=== PATIENT | female | born 1975 | race Caucasian/White ===

== ENCOUNTER → 2017-11-06 | Outpatient (CLI) | payer OTHER ==
[~2017-11-06] MED LIST: ACCUNEB SO1.25 MG/1 INH; ACETAMINOPHEN-1 EAC1 PO; ALDACTONE25 MG PO; AMBIEN 5 MG TABL5 M1 PO; AMLODIPINE BESYL5 M1 PO; APRI PO; APRI1 EACH PO; ATROVENT HFA14 GM INH; AUGMENTIN 875875 MG PO; BUTALBITAL-APA1 EAC1 PO; CELEXA10 MG PO; CIPROFLOXACIN500 M1 PO; DIOVAN320 MG PO; DUONEB 2.5-0.5 M3 ML INH; EFFEXOR75 MG PO; FAMCICLOVIR500 MG PO; FAMCYCLOVIR 50500 M1 PO; FLEXERIL PO; FLONASE 0.05%50 MCG NASAL; FLORICAL CAPSU1 EACH PO; HYDROCODONE-AP1 EAC6 PO; HYDROCODONE-APA1 TA1 PO; HYOSCYAMINE0.125 MG PO; IBUPROFEN 800800 M1; IMITREX 25 MG T25 M1; KEPPRA 500 MG500 M1 PO; LIORESAL 10 MG10 MG PO; LORTAB 5-500 T1 EAC1 PO; MAXALT; MAXALT MLT ODT10 M1 PO; MAXALT5 MG PO; METOPROLOL SUCC25 M1 PO; NORCO 5-325 TA1 EAC1 PO; NORCO 5-325 TA1 EACH PO; OMEPRAZOLE40 MG PO; ONDANSETRON HCL4 M2 PO; ONDANSETRON ODT4 MG PO; PAROXETINE ER12.5 M1 PO; PAXIL CR37.5 MG PO; PREDNISONE 20 M20 M1 PO; PROAIR HFA8.5 GM INH; PROMETHAZINE V480 M1 GT; PROPRANOLOL 1010 M1; PULMICORT0.25 MG/3 INH; RELPAX40 MG PO; TOPAMAX50 MG PO; VITAMIN B-121000 MCG PO; VITAMIN D2000 UNIT PO; VOLTAREN GEL 1100 G2 TOP; WELLBUTRIN SR150 MG PO; XANAX XR1 MG PO; XANAX1 MG PO; XANAX2 MG PO; ZANTAC 150MG T150 MG PO; ZOLOFT50 MG PO; ZPAK PO; [UNRECOGNIZED DRUG - OTHER]
[2017-11-06 06:47] LABS: HEMOGLOBIN 12.9 gm/dL (12.0-15.0); MCH 30.7 pg (26.0-34.0); NUCLEATED RBCS 0 /100WBC; RBC 4.19 mil/uL (4.20-5.00); WBC 6.5 thou/uL (4.0-11.0)
[2017-11-06 06:48] LABS: ABSOLUTE EOSINOPHILS 0.1 thou/uL (0.0-0.7); ABSOLUTE LYMPHOCYTES 1.8 thou/uL (0.8-5.3); ABSOLUTE MONOCYTES 0.3 thou/uL (0.0-1.2); ABSOLUTE NEUTROPHILS 4.2 thou/uL (1.6-8.1); BASOPHILS 0.7 %; EOSINOPHILS 1.9 %; HEMATOCRIT 38.1 % (37.0-47.0); LYMPHOCYTES 27.4 %; MCHC 33.8 g/dL (28.0-37.0); MCV 90.9 fL (80.0-100.0); MONOCYTES 5.2 %; MPV 8.9 fl. (7.2-11.1); PLATELET COUNT* 212 thou/uL (150-400); POLYS 64.8 %; RDW-CV 14.6 % (10.5-14.5)
[2017-11-06 06:57] LABS: ALBUMIN 3.8 g/dL (3.4-5.0); ALKALINE PHOSPHATASE 88 U/L (46-116); ANION GAP 12 mmol/L (7-16); BUN 10 mg/dL (7-18); CALCIUM 8.6 mg/dL (8.5-10.1); CHLORIDE 107 mmol/L (98-107); CHOLESTEROL 230 mg/dL (<200); CO2 22 mmol/L (21-32); CREATININE 0.8 mg/dL (0.6-1.3); GLUCOSE 93 mg/dL (70-99); HDL CHOLESTEROL 53 mg/dL (>40); LDL CHOLESTEROL 146 mg/dL (<100); MAGNESIUM 2.2 mg/dL (1.8-2.4); POTASSIUM 4.1 mmol/L (3.5-5.1); SGOT 11 U/L (15-37); SGPT 17 U/L (30-65); SODIUM 141 mmol/L (136-145); TC:HDL 4.3 Ratio (Not establshd); TOTAL BILIRUBIN 0.2 mg/dL (<0.1-1.0); TRIGLYCERIDE 157 mg/dL (<150); VLDL 31 mg/dL (<40)
[2017-11-06 07:00] LABS: SERUM ASSESSMENT Clear
[2017-11-06 07:28] LABS: % SATURATION 32 % (20-39); IRON 87 ug/dL (50-175)
[2017-11-06 14:08] LABS: eGFR IF AFRICAN AMERICAN 119 (>59)
[2017-11-06 21:11] LABS: PARATHYROID HORMONE 67 pg/mL (15-65)
== END ==
LOC: M.LAB 05:40
DX: K91.2 Postsurgical malabsorption, not elsewhere classified (principal); Z90.3 Acquired absence of stomach [part of]

== ENCOUNTER → 2018-02-17 | Outpatient (CLI) | payer OTHER ==
[2018-02-17 12:14] LABS: % SATURATION 30 % (20-39); IRON 86 ug/dL (50-175)
== END ==
LOC: M.LAB 11:08
PROVIDERS: Internal Medicine
DX: D50.9 Iron deficiency anemia, unspecified (principal)

== ENCOUNTER 2018-10-07 09:01 | Emergency (ER) | payer OTHER ==
[~2018-10-07] VITALS: Ht 170.2 cm; Wt 112.0 kg
[~2018-10-07 09:01] MED LIST changes: -IMITREX 25 MG T25 M1; +IMITREX 25 MG T25 M1 PO
[2018-10-07 09:17] LABS: ABSOLUTE BASOPHILS 0.1 thou/uL (0.0-0.2); ABSOLUTE EOSINOPHILS 0.1 thou/uL (0.0-0.7); ABSOLUTE LYMPHOCYTES 1.7 thou/uL (0.8-5.3); ABSOLUTE MONOCYTES 0.5 thou/uL (0.0-1.2); ABSOLUTE NEUTROPHILS 5.6 thou/uL (1.6-8.1); BASOPHILS 0.8 %; EOSINOPHILS 1.6 %; HEMATOCRIT 37.6 % (37.0-47.0); HEMOGLOBIN 12.8 gm/dL (12.0-15.0); LYMPHOCYTES 21.3 %; MCH 30.4 pg (26.0-34.0); MCHC 33.9 g/dL (28.0-37.0); MCV 89.7 fL (80.0-100.0); MONOCYTES 6.6 %; MPV 8.4 fl. (7.2-11.1); NUCLEATED RBCS 0 /100WBC; PLATELET COUNT* 270 thou/uL (150-400); POLYS 69.7 %; WBC 8.1 thou/uL (4.0-11.0)
[2018-10-07 09:31] LABS: CREATININE 0.8 mg/dL (0.6-1.3); POTASSIUM 4.3 mmol/L (3.5-5.1)
[2018-10-07 09:36] LABS: ALBUMIN 3.6 g/dL (3.4-5.0); TOTAL BILIRUBIN 0.3 mg/dL (<0.1-1.0); TOTAL PROTEIN 7.1 g/dL (6.4-8.2)
[2018-10-07] MEDS ORDERED: PROPRANOLOL 1010 MG PO ×3 (09:39→10:10)
[2018-10-07] MEDS ORDERED: BUTALB-APAP-CA1 EACH PO ×2 (09:41→10:11)
[2018-10-07] MEDS ORDERED: SF 5000 PLUS51 GM (09:42)
[2018-10-07 10:00] LABS: INFLUENZA A ANTIGEN None Detected (None Detect); INFLUENZA B ANTIGEN None Detected (None Detect)
[2018-10-07] MEDS ORDERED: AMBIEN 5 MG TABL5 M1 PO (10:03)
[2018-10-07] MEDS ORDERED: DOXEPIN 25 MG C25 MG PO (10:04)
[2018-10-07] MEDS ORDERED: LEVAQUIN 500 M500 M2 PO (10:05)
[2018-10-07] MEDS ORDERED: PROMETH-CODEIN 65 ML PO (10:06)
[2018-10-07] MEDS ORDERED: VENTOLIN HFA 1818 GM INH (10:06)
[2018-10-07] MEDS ORDERED: DIFLUCAN200 MG PO (10:06)
[2018-10-07] MEDS ORDERED: AMOXIL 875 MG875 M2 PO (10:07)
[2018-10-07] MEDS ORDERED: AZITHROMYCIN 2250 MG PO (10:08)
[2018-10-07] MEDS ORDERED: GABAPENTIN 100100 MG PO ×2 (10:08)
[2018-10-07] MEDS ORDERED: LEVONORG-ETH E1 EACH PO (10:09)
[2018-10-07] MEDS ORDERED: SUMATRIPTAN SUC50 MG PO (10:12)
[2018-10-07] MEDS ORDERED: FLEXERIL PO (10:12)
[2018-10-07] MEDS ORDERED: ZOFRAN ODT4 MG PO (10:13)
[2018-10-07] MEDS ORDERED: SF 5000 PLUS51 GM TOP (10:13)
[2018-10-07] MEDS ORDERED: PAXIL10 MG PO (10:14)
[2018-10-07 11:18] LABS: URINE BILIRUBIN NEGATIVE (Negative); URINE BLOOD NEGATIVE (Negative); URINE CLARITY CLEAR; URINE COLOR YELLOW; URINE GLUCOSE-RANDOM NEGATIVE (Negative); URINE KETONES NEGATIVE (Negative); URINE LEUKOCYTES-REFLEX NEGATIVE (Negative); URINE NITRITE-REFLEX NEGATIVE (Negative); URINE PROTEIN NEGATIVE (Negative); URINE SPECIFIC GRAVITY <= 1.005 (1.005-1.030); URINE UROBILINOGEN 0.2 E.U./dl (0.2-1.0)
[2018-10-07 11:25] LABS: AMP/METHAMP Negative (Negative); BARBITURATES POSITIVE (Negative); BENZODIAZEPINES POSITIVE (Negative); COCAINE Negative (Negative); METHADONE Negative (Negative); OPIATES POSITIVE (Negative); PCP Negative (Negative); THC POSITIVE (Negative)
[2018-10-07 12:35] VITALS: BP 161/84
--- NOTE | 2018-10-07 15:40 | EKG ---
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 Tapper: JULIANNE : 1975 Requested By: Dianna Valderrama Order Number: [id number] MD: Jose Allen Measurements Intervals [place] Rate: 70 P: 41 MA: 200 QRS: 20 QRSD: 105 T: 9 QT: 412 QTc: 445 Interpretive Statements Sinus rhythm Abnormal T, consider ischemia, anterior leads Compared to ECG 10/04/2016 09:47:02 Possible ischemia now present T-wave abnormality more prominent Electronically Signed On 10-07-2018 15:40:08 ELECTRONICS LEAD by Jose Allen [email or web address] <ELECTRONICALLY SIGNED> By: Jose Allen MD, [facility] 10/07/18 1540 3 Jose Allen MD, [facility] /EPI
--- NOTE | 2018-10-08 09:40 | EEG ---
[address] [address] EEG STUDY REPORT Name: RYANNEHEATHER A Room: [facility]#: [id number] Admission: 10/07/18 Attend Phys: Discharge: 10/07/18 Date of : [birth year] Report #: [id number] THIS REPORT FOR: //name// CC: Morales Valderrama DATE OF SERVICE: 10/07/2018 This patient is being evaluated for the possibility of seizures. EEG was done by placing the electrode by standard 10-20 system of electrode placement. Both referential and sequential montages were used for recording. Background activity in this patient's EEG is 11 Hz and 40 microvolt. It is a symmetrical activity. The patient went to sleep that was associated with bilateral slowing and vertex sharp waves. Photic stimulation is unremarkable. Throughout the record, no active epileptiform activity was noticed. IMPRESSION: This patient's EEG is unremarkable and did not reveal any definite epileptiform activity. Clinical correlation is recommended as EEG can be normal in a patient with seizure disorder. Thank you very much for this referral. <ELECTRONICALLY SIGNED> By: Boaz Gillespie MD 10/08/18 0940 1650 1728Boaz Gillespie MD /nt
== END 2018-10-07 12:36 | disposition home or self-care (01) ==
LOC: M.ERS 09:01
PROVIDERS: Personal Emergency Response Attendant
DX: F44.5 Conversion disorder with seizures or convulsions (principal); M79.7 Fibromyalgia; I10 Essential (primary) hypertension; G43.909 Migraine, unspecified, not intractable, without status migrainosus; Z90.49 Acquired absence of other specified parts of digestive tract; Z98.890 Other specified postprocedural states; Z88.8 Allergy status to other drugs, medicaments and biological substances

== ENCOUNTER → 2018-11-03 | Outpatient (CLI) | payer OTHER ==
[~2018-11-03] MED LIST changes: +AMOXIL 875 MG875 M2 PO; +AZITHROMYCIN 2250 MG PO; +BUTALB-APAP-CA1 EACH PO; +DIFLUCAN200 MG PO; +DOXEPIN 25 MG C25 MG PO; +GABAPENTIN 100100 MG PO; +LEVAQUIN 500 M500 M2 PO; +LEVONORG-ETH E1 EACH PO; +PAXIL10 MG PO; +PROMETH-CODEIN 65 ML PO; +PROPRANOLOL 1010 MG PO; +SF 5000 PLUS51 GM; +SF 5000 PLUS51 GM TOP; +SUMATRIPTAN SUC50 MG PO; +VENTOLIN HFA 1818 GM INH; +ZOFRAN ODT4 MG PO
[2018-11-03 08:08] LABS: HEMATOCRIT 36.8 % (37.0-47.0); HEMOGLOBIN 12.5 gm/dL (12.0-15.0); MCH 30.2 pg (26.0-34.0); MPV 8.3 fl. (7.2-11.1); RBC 4.14 mil/uL (4.20-5.00); RDW-CV 13.5 % (10.5-14.5); WBC 6.2 thou/uL (4.0-11.0)
[2018-11-03 08:29] LABS: CALCIUM 8.6 mg/dL (8.5-10.1); CREATININE 0.9 mg/dL (0.6-1.3)
[2018-11-03 09:02] LABS: ALBUMIN 3.5 g/dL (3.4-5.0); ALKALINE PHOSPHATASE 81 U/L (46-116); ANION GAP 8 mmol/L (7-16); BUN 9 mg/dL (7-18); CALCIUM 8.6 mg/dL (8.5-10.1); CHLORIDE 102 mmol/L (98-107); CHOLESTEROL 232 mg/dL (<200); CO2 27 mmol/L (21-32); CREATININE 0.8 mg/dL (0.6-1.3); GLUCOSE 89 mg/dL (70-99); HDL CHOLESTEROL 59 mg/dL (>40); LDL CHOLESTEROL 142 mg/dL (<100); MAGNESIUM 2.2 mg/dL (1.8-2.4); POTASSIUM 4.1 mmol/L (3.5-5.1); SGOT 11 U/L (15-37); SGPT 13 U/L (30-65); SODIUM 137 mmol/L (136-145); TC:HDL 3.9 Ratio (Not establshd); TOTAL BILIRUBIN 0.3 mg/dL (<0.1-1.0); TOTAL PROTEIN 6.9 g/dL (6.4-8.2); TRIGLYCERIDE 159 mg/dL (<150); VLDL 32 mg/dL (<40)
[2018-11-03 09:04] LABS: SERUM ASSESSMENT Clear
[2018-11-03 09:35] LABS: % SATURATION 26 % (20-39); IRON 70 ug/dL (50-175)
== END ==
LOC: M.LAB 07:39
DX: K91.2 Postsurgical malabsorption, not elsewhere classified (principal); Z90.3 Acquired absence of stomach [part of]

== ENCOUNTER → 2018-12-09 | Outpatient (CLI) | payer OTHER | LOC: M.RAD 08:09 | DX: K21.9 Gastro-esophageal reflux disease without esophagitis (principal); K44.9 Diaphragmatic hernia without obstruction or gangrene; Z98.890 Other specified postprocedural states; Z90.49 Acquired absence of other specified parts of digestive tract ==

== ENCOUNTER → 2019-01-12 | Outpatient (CLI) | payer OTHER ==
[2019-01-12 08:16] LABS: CREATININE 0.9 mg/dL (0.6-1.3)
== END ==
LOC: M.LAB 01-08 08:00 → M.CT 01-08 08:00 → M.LAB 06:52 → M.CT 09:30
PROVIDERS: Surgery
DX: K76.0 Fatty (change of) liver, not elsewhere classified (principal)

== ENCOUNTER 2019-02-18 10:27 | Emergency (ER) | payer OTHER ==
[~2019-02-18] VITALS: Ht 162.6 cm; Wt 104.8 kg
[2019-02-18] MEDS ORDERED: RIZATRIPTAN5 M1 PO (10:40)
[2019-02-18] MEDS ORDERED: XANAX 0.5 MG0.5 MG PO (10:41)
[2019-02-18] MEDS ORDERED: NORCO 5-325 TA1 EACH PO (10:41)
[2019-02-18 11:00] LABS: ABSOLUTE BASOPHILS 0.1 thou/uL (0.0-0.2); ABSOLUTE EOSINOPHILS 0.1 thou/uL (0.0-0.7); ABSOLUTE MONOCYTES 0.6 thou/uL (0.0-1.2); ABSOLUTE NEUTROPHILS 3.5 thou/uL (1.6-8.1); BASOPHILS 1.4 %; EOSINOPHILS 1.2 %; HEMATOCRIT 35.9 % (37.0-47.0); HEMOGLOBIN 12.2 gm/dL (12.0-15.0); LYMPHOCYTES 32.3 %; MCH 30.1 pg (26.0-34.0); MCHC 33.9 g/dL (28.0-37.0); MCV 88.6 fL (80.0-100.0); MONOCYTES 9.7 %; MPV 8.2 fl. (7.2-11.1); NUCLEATED RBCS 0 /100WBC; PLATELET COUNT* 262 thou/uL (150-400); POLYS 55.4 %; RBC 4.05 mil/uL (4.20-5.00); WBC 6.3 thou/uL (4.0-11.0)
[2019-02-18 11:13] LABS: URINE BILIRUBIN NEGATIVE (Negative); URINE BLOOD 3+ (Negative); URINE CLARITY CLEAR; URINE COLOR YELLOW; URINE GLUCOSE-RANDOM NEGATIVE (Negative); URINE KETONES NEGATIVE (Negative); URINE LEUKOCYTES-REFLEX TRACE (Negative); URINE NITRITE-REFLEX NEGATIVE (Negative); URINE PROTEIN NEGATIVE (Negative); URINE SPECIFIC GRAVITY <= 1.005 (1.005-1.030); URINE UROBILINOGEN 0.2 E.U./dl (0.2-1.0)
[2019-02-18 11:17] LABS: ANION GAP 10 mmol/L (7-16); BUN 10 mg/dL (7-18); CALCIUM 8.4 mg/dL (8.5-10.1); CHLORIDE 104 mmol/L (98-107); CO2 26 mmol/L (21-32); CREATININE 0.8 mg/dL (0.6-1.3); GLUCOSE 87 mg/dL (70-99); SODIUM 140 mmol/L (136-145)
[2019-02-18 11:19] LABS: BACTERIA-REFLEX 1-9 Few /HPF (None Seen); SQUAMOUS NONE SEEN /LPF (0-3); URINE RBC 3-10 Few /HPF (0-2); URINE WBC-REFLEX 0-5 Rare /HPF (0-5)
[2019-02-18 11:21] LABS: CASTS None Seen /LPF (None Seen); CRYSTALS None Seen /LPF (None Seen); MUCUS None Seen strn/LPF (None Seen)
[2019-02-18 11:21] LABS: ALBUMIN 3.7 g/dL (3.4-5.0); ALKALINE PHOSPHATASE 72 U/L (46-116); LIPASE 97 U/L (73-393); SGOT 10 U/L (15-37); SGPT 14 U/L (30-65); TOTAL BILIRUBIN 0.2 mg/dL (<0.1-1.0); TOTAL PROTEIN 6.9 g/dL (6.4-8.2); TROPONIN-I LEVEL <0.06 ng/mL (<0.06)
[2019-02-18] MEDS ORDERED: BACTRIM DS TAB1 EACH PO (13:43)
[2019-02-18 13:47] VITALS: BP 146/92
--- NOTE | 2019-02-18 14:51 | EKG ---
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 : 1975 Requested By: Gudelia Bran Order Number: [id number] MD: Bull Aguilera Measurements Intervals [place] Rate: 64 P: 19 [place]: 196 QRS: 4 QRSD: 102 T: -11 QT: 440 QTc: 454 Interpretive Statements Sinus rhythm Nonspecific T abnormalities, anterior leads Compared to ECG 10/07/2018 09:14:02 Possible ischemia no longer present T-wave abnormality still present Electronically Signed On 02-18-2019 14:50:58 CDT by Bull Aguilera [email or web address] <ELECTRONICALLY SIGNED> By: Bull Aguilera MD, [facility] 02/18/19 1450 1033 1033 Bull Aguilera MD, [facility] /EPI
== END 2019-02-18 12:13 | disposition home or self-care (01) ==
LOC: M.ERS 10:27
PROVIDERS: Physician Assistant
DX: I10 Essential (primary) hypertension (principal); G43.909 Migraine, unspecified, not intractable, without status migrainosus; R31.9 Hematuria, unspecified; R10.13 Epigastric pain; M79.7 Fibromyalgia; Z88.8 Allergy status to other drugs, medicaments and biological substances; Z90.49 Acquired absence of other specified parts of digestive tract; Z98.890 Other specified postprocedural states

== ENCOUNTER 2020-02-16 09:07 | Emergency (ER) | payer OTHER ==
[~2020-02-16] VITALS: Ht 162.6 cm; Wt 102.1 kg
[~2020-02-16 09:07] MED LIST changes: +BACTRIM DS TAB1 EACH PO; +RIZATRIPTAN5 M1 PO; +XANAX 0.5 MG0.5 MG PO
[2020-02-16] MEDS ORDERED: HYDROCHLOROTH12.5 M1 PO (09:21)
[2020-02-16] MEDS ORDERED: AIMOVIG AU70 MG/1 ML SUBQ (09:22)
[2020-02-16] MEDS ORDERED: TOPROL XL100 MG PO (09:22)
[2020-02-16] MEDS ORDERED: VALSARTAN80 MG PO (09:23)
[2020-02-16] MEDS ORDERED: CELEBREX 200 M200 MG PO (09:24)
[2020-02-16] MEDS ORDERED: BUSPIRONE HCL10 MG PO (09:25)
[2020-02-16] MEDS ORDERED: ZANAFLEX4 M1 PO (09:26)
[2020-02-16 10:15] LABS: MPV 8.4 fl. (7.2-11.1); NUCLEATED RBCS 0 /100WBC; WBC 7.9 thou/uL (4.0-11.0)
[2020-02-16 10:17] LABS: ABSOLUTE BASOPHILS 0.1 thou/uL (0.0-0.2); ABSOLUTE EOSINOPHILS 0.1 thou/uL (0.0-0.7); ABSOLUTE LYMPHOCYTES 1.5 thou/uL (0.8-5.3); ABSOLUTE MONOCYTES 0.5 thou/uL (0.0-1.2); ABSOLUTE NEUTROPHILS 5.7 thou/uL (1.6-8.1); EOSINOPHILS 0.9 %; HEMATOCRIT 38.8 % (37.0-47.0); HEMOGLOBIN 13.4 gm/dL (12.0-15.0); LYMPHOCYTES 18.7 %; MCH 30.6 pg (26.0-34.0); MCHC 34.4 g/dL (28.0-37.0); MCV 88.8 fL (80.0-100.0); MONOCYTES 6.9 %; PLATELET COUNT* 246 thou/uL (150-400); POLYS 72.5 %; RBC 4.37 mil/uL (4.20-5.00); RDW-CV 13.3 % (10.5-14.5)
[2020-02-16 10:28] LABS: APTT 27.6 Seconds (25.0-31.3); PROTIME 10.4 Seconds (9.20-11.50)
[2020-02-16 10:29] LABS: ANION GAP 7 mmol/L (7-16); BUN 8 mg/dL (7-18); CHLORIDE 101 mmol/L (98-107); CO2 28 mmol/L (21-32); GLUCOSE 100 mg/dL (70-99); POTASSIUM 3.6 mmol/L (3.5-5.1); SODIUM 136 mmol/L (136-145)
[2020-02-16 10:37] LABS: ALBUMIN 3.9 g/dL (3.4-5.0); ALKALINE PHOSPHATASE 83 U/L (46-116); CK-MB MASS < 0.5 ng/mL (<0.5-3.6); LIPASE 117 U/L (73-393); MAGNESIUM 2.1 mg/dL (1.8-2.4); NT-PRO BRAIN NAT PEPTIDE 221 pg/mL (<300); SGOT 9 U/L (15-37); SGPT 16 U/L (30-65); TOTAL BILIRUBIN 0.4 mg/dL (<0.1-1.0); TOTAL PROTEIN 7.4 g/dL (6.4-8.2)
[2020-02-16 11:15] VITALS: BP 157/97
--- NOTE | 2020-02-16 16:38 | EKG ---
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 1975 Requested By: Andi Ramsey Order Number: [id number] MD: Bull Aguilera Measurements Intervals [place] Rate: 89 P: 47 [place]: 174 QRS: 29 QRSD: 94 T: -5 QT: 411 QTc: 501 Interpretive Statements Sinus rhythm ST segment depression diffusely, consider ischemia Prolonged QT interval Baseline wander in lead(s) II,III,aVR,aVF,V2,V4,V5,V6 Compared to ECG 02/18/2019 10:33:09 Early repolarization now present Prolonged QT interval now present T-wave abnormality no longer present Electronically Signed On 02-16-2020 16:36:31 CDT by uBll Aguilera [email or web address] <ELECTRONICALLY SIGNED> By: Bull Aguilera MD, [facility] 02/16/20 1636 2 2 Bull Aguilera MD, [facility] /EPI
== END 2020-02-16 11:15 | disposition home or self-care (01) ==
LOC: M.ERS 09:07
PROVIDERS: Family Medicine
DX: R00.2 Palpitations (principal); I10 Essential (primary) hypertension; G43.909 Migraine, unspecified, not intractable, without status migrainosus; M79.7 Fibromyalgia; Z90.49 Acquired absence of other specified parts of digestive tract; Z98.890 Other specified postprocedural states; Z88.8 Allergy status to other drugs, medicaments and biological substances

== ENCOUNTER 2020-06-14 15:57 | Inpatient (IN) | payer OTHER ==
[~2020-06-14] VITALS: Ht 162.6 cm; Wt 99.3 kg
[2020-06-14] VITALS (7 sets, daily range): BP systolic 156–203; BP diastolic 95–104
--- NOTE | ~2020-06-14 | CON ---
[address] [address] CONSULTATION Name: HEATHER PEARL Room: [address] IN .R.#: [id number] Admission: 06/14/20 Attend Phys: Jared Springer MD Discharge: Date of : [birth year] Report #: [id number] THIS REPORT FOR: //name// cc: Morales Camacho Ahmad W. DO ~ THIS REPORT FOR: //name// CC: Morales Springer DATE OF SERVICE: 06/15/2020 HISTORY OF PRESENT ILLNESS: This is a 45-year-old female patient who was evaluated by me for migraine. This patient indicates that she has a longstanding history of migraine. Migraine becomes worse when she becomes hypotensive. Hypertension has been labile. She sees neurologist, Dr. Martell at [place]. Presently, she is having similar headache, headache is bioccipital and goes towards the frontal area. Her blood pressure on arrival was high, but it is better now. In between, it went low, but now it is about 150 systolic. REVIEW OF SYSTEMS: Positive for hyperlipidemia, obesity with more than one bariatric surgery as I understand. She does not take any supplemental vitamin. She had multiple surgeries on the abdomen. She has a history of fibromyalgia. She had a recent MRI, she does not know when it was, it was done by Dr. Martell. She thinks it was unremarkable. She takes Aimovig shots every month. She thinks the next shot is due around 15. It helps significantly. She takes intermittently Imitrex. She takes either 25 mg or 50 mg. It does not cause any high side effect when she used to take injection that used to cause side effect. She has a history of endometrial ablation. She does appear to have anxiety as she is on Xanax. In the notes that looks like the patient had a question of seizure, I do not know how define that history is. This was a relevant 14-point review of system. PAST MEDICAL HISTORY: Positive for migraines, uterine ablation and labile hypertension. She denies any stress. FAMILY HISTORY: Unremarkable. SOCIAL HISTORY: She does not smoke or drink any alcohol. PHYSICAL EXAMINATION: Indicates she is alert, responsive, able to follow simple and complex command. Cranial nerve examinations appear unremarkable. She has symmetrical strength, sensation, reflexes and tone in all 4 extremities. Plantar appear to be mute. Reflexes are present. There is no cerebellar sign. I could not look at the fundus. Cardiac examination appear unremarkable. No respiratory difficulty was noted. Pulses are palpable. Blood pressure now was [facility] [address] [place] [address] CONSULTATION Name: RYANNEHEATHER Room: [address] M.R.#: [id number] Admission: 06/14/20 Attend Phys: Jared Springer MD Discharge: Date of : 79 Report #: [id number] about 150 systolic, pulse is 85, temperature is 98.8. LABORATORY DATA: She did have a CT scan done on admission and that showed no acute abnormality. IMPRESSION: This patient has a chronic longstanding migraine. The workup has already been done and I will suggest continue the same treatment. She should follow up with Dr. Martell. I did ask her to be careful with sumatriptan and Aimovig because of her history of hypertension. I did not order any further workup because there has been no change in the patient's condition or correct of headache. I think the best is to let her follow up with her own neurologist who has the workup until things changes here. Thank you very much for this referral and if you have any question, please feel free to contact me. By: 1430 1455Boaz Garrison MD /nt
[~2020-06-14 15:57] MED LIST changes: +AIMOVIG AU70 MG/1 ML SUBQ; +BUSPIRONE HCL10 MG PO; +CELEBREX 200 M200 MG PO; +HYDROCHLOROTH12.5 M1 PO; +TOPROL XL100 MG PO; +VALSARTAN80 MG PO; +ZANAFLEX4 M1 PO
[2020-06-14] MEDS ORDERED: LOSARTAN-HCTZ1 EAC3 PO (16:03)
[2020-06-14] MEDS ORDERED: BENICAR40 MG PO (16:04)
[2020-06-14] MEDS ORDERED: HYDRALAZINE 2525 M1 PO (16:04)
[2020-06-14 16:28] LABS: ABSOLUTE BASOPHILS 0.1 thou/uL (0.0-0.2); ABSOLUTE EOSINOPHILS 0.1 thou/uL (0.0-0.7); ABSOLUTE LYMPHOCYTES 2.7 thou/uL (0.8-5.3); ABSOLUTE MONOCYTES 0.5 thou/uL (0.0-1.2); ABSOLUTE NEUTROPHILS 4.5 thou/uL (1.6-8.1); BASOPHILS 1.1 %; EOSINOPHILS 1.4 %; HEMATOCRIT 40.8 % (37.0-47.0); HEMOGLOBIN 13.9 gm/dL (12.0-15.0); LYMPHOCYTES 34.4 %; MCHC 34.1 g/dL (28.0-37.0); MCV 88.1 fL (80.0-100.0); MPV 8.4 fl. (7.2-11.1); NUCLEATED RBCS 0 /100WBC; PLATELET COUNT* 265 thou/uL (150-400); POLYS 57.1 %; RBC 4.63 mil/uL (4.20-5.00); RDW-CV 13.4 % (10.5-14.5); WBC 7.9 thou/uL (4.0-11.0)
[2020-06-14 16:31] LABS: CALCIUM 8.6 mg/dL (8.5-10.1); CREATININE 1.1 mg/dL (0.6-1.3); POTASSIUM 3.3 mmol/L (3.5-5.1)
[2020-06-14 16:33] LABS: APTT 26.1 Seconds (25.0-31.3); PROTIME 10.1 Seconds (9.20-11.50)
[2020-06-14 16:42] LABS: ALBUMIN 3.9 g/dL (3.4-5.0); TOTAL BILIRUBIN 0.3 mg/dL (<0.1-1.0); TOTAL PROTEIN 7.8 g/dL (6.4-8.2)
[2020-06-14] MEDS ORDERED: IMITREX 50 MG T50 MG PO (23:12)
[2020-06-14] MEDS ORDERED: AMBIEN 10 MG TA10 MG PO (23:19)
[2020-06-15] VITALS (62 sets, daily range): BP systolic 84–165; BP diastolic 44–109
--- NOTE | 2020-06-15 12:57 | 2DMMODE ---
[place] [address] 2 D/M-MODE ECHOCARDIOGRAM Name: HEATHER PEARL Room: [address] IN [facility]#: [id number] Admission: 06/14/20 Attend Phys: Jared Springer, Discharge: Date of : 79 Date of Service: 06/15/20 1257 Report #: [id number] THIS REPORT FOR: cc: Morales Caamcho Ahmad W. DO Liston, Michael J. MD [facility] ~ APPROVED REPORT Study performed: 06/15/2020 09:24:59 EXAM: Comprehensive 2D, Doppler, and color-flow Echocardiogram Patient Location: In-Patient Room #: 008 Status: routine BSA: 2.03 HR: 77 bpm BP: 96/53 mmHg Rhythm: NSR Other Information Study Quality: Good Indications Chest Pain 2D Dimensions IVSd: 12.00 (7-11mm) LVOT Diam: 19.74 (18-24mm) LVDd: 48.71 mm PWd: 11.95 (7-11mm) Ascending Ao: 26.56 (22-36mm) LVDs: 29.07 (25-40mm) Aortic Root: 29.85 mm Volumes Left Atrial Volume (Systole) LA ESV Index: 12.70 mL/m2 Aortic Valve AoV Peak Nathaniel.: 1.63 m/s AO Peak Gr.: 10.57 mmHg LVOT Max P.19 mmHg AO Mean Gr.: 5.95 mmHg LVOT Mean P.29 mmHg LVOT Max V: 1.52 m/s AO V2 VTI: 27.97 cm LVOT Mean V: 0.94 m/s GEORGI (VTI): 2.79 cm2 LVOT V1 VTI: 25.47 [place] [address] 2 D/M-MODE ECHOCARDIOGRAM Name: HEATHER PEARL Room: [address] IN ..#: [id number] Admission: 06/14/20 Attend Phys: Jared Springer, Discharge: Date of : 79 Date of Service: 06/15/20 1257 Report #: [id number] Mitral Valve E/A Ratio: 1.02 MV Decel. Time: 151.25 ms MV E Max Nathaniel.: 0.87 m/s MV PHT: 43.86 ms MVA (PHT): 5.02 cm2 TDI E/Lateral E': 9.67 E/Medial E': 7.91 Medial E' Nathaniel.: 0.11 m/s Lateral E' Nathaniel.: 0.09 m/s Pulmonary Valve PV Peak Nathaniel.: 1.24 m/s PV Peak Gr.: 6.19 mmHg Left Ventricle The left ventricle is normal size. There is normal LV segmental wall motion. Mild concentric left ventricular hypertrophy. Left ventricular systolic function is normal. LVEF is 65%. Transmitral Doppler flow pattern suggests impaired LV relaxation. Right Ventricle The right ventricle is normal size. The right ventricular systolic function is normal. Atria The left atrium size is normal. The right atrium size is normal. Aortic Valve The aortic valve is normal in structure. No aortic regurgitation is present. There is no aortic valvular stenosis. Mitral Valve The mitral valve is normal in structure. There is no mitral valve regurgitation noted. No evidence of mitral valve stenosis. Tricuspid Valve The tricuspid valve is normal in structure. Unable to assess PA pressure. Trace tricuspid regurgitation. Pulmonic Valve The pulmonary valve is normal in structure. There is no pulmonic valvular regurgitation[place] [address] 2 D/M-MODE ECHOCARDIOGRAM Name: HEATHER PEARL Room: [address] IN [facility]#: [id number] Admission: 06/14/20 Attend Phys: Jared Springer, Discharge: Date of : 79 Date of Service: 06/15/20 1257 Report #: [id number] The aortic root is normal in size. IVC is normal in size and collapses >50% with inspiration. Pericardium There is no pericardial effusion. <Conclusion> The left ventricle is normal size. Mild concentric left ventricular hypertrophy. Left ventricular systolic function is normal. LVEF is 65%. Transmitral Doppler flow pattern suggests impaired LV relaxation. Trace tricuspid regurgitation. IVC is normal in size and collapses >50% with inspiration. <ELECTRONICALLY SIGNED> By: Bull Aguilera MD, FACC 06/15/20 1257 1257 1257 Bull Aguilera MD, FACC /INF
--- NOTE | 2020-06-15 13:02 | EKG ---
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: : 1975 Requested By: Brittney Simmons Order Number: [id number] MD: Bull Aguilera Measurements Intervals [place] Rate: 85 P: 57 [place]: 164 QRS: 13 QRSD: 105 T: 14 QT: 381 QTc: 453 Interpretive Statements Sinus rhythm Borderline repolarization abnormality Baseline wander in lead(s) V2,V3 Compared to ECG 02/16/2020 09:13:34 Possible ischemia no longer present Prolonged QT interval no longer present Electronically Signed On 06-15-2020 13:02:46 CDT by Bull Aguilera [email or web address] <ELECTRONICALLY SIGNED> By: Bull Aguilera MD, FACC 06/15/20 1302 1601 1601 Bull Aguilera MD, FACC /EPI
[2020-06-16] VITALS (17 sets, daily range): BP systolic 91–144; BP diastolic 42–100
[2020-06-16] MEDS ORDERED: PROCARDIA XL30 MG PO (08:15)
[2020-06-16] MEDS ORDERED: CLONIDINE HCL0.2 M2 PO (09:13)
== END 2020-06-16 10:19 | disposition home or self-care (01) | DRG 305 ==
LOC: M.ERS 15:57 → M.ICU 19:19 → M.TBA-ER 19:19 → M.ICU 19:19 → M.ERS 19:19 → M.ICU 22:02
PROVIDERS: Nurse Practitioner Family; ADMIT Internal Medicine; ATTEND Internal Medicine
DX: I16.0 Hypertensive urgency (principal); G43.701 Chronic migraine without aura, not intractable, with status migrainosus; M79.7 Fibromyalgia; E78.5 Hyperlipidemia, unspecified; E66.01 Morbid (severe) obesity due to excess calories; J42 Unspecified chronic bronchitis; I20.9 Angina pectoris, unspecified; F41.9 Anxiety disorder, unspecified; F32.9 Major depressive disorder, single episode, unspecified; G89.29 Other chronic pain; E87.6 Hypokalemia; Z20.828 Contact with and (suspected) exposure to other viral communicable diseases; I10 Essential (primary) hypertension; Z90.49 Acquired absence of other specified parts of digestive tract; Z79.899 Other long term (current) drug therapy; Z88.8 Allergy status to other drugs, medicaments and biological substances; Z68.37 Body mass index [BMI] 37.0-37.9, adult